=== PATIENT | male | born 1960 | race Caucasian/White ===

== ENCOUNTER 2025-05-03 13:38 | Inpatient (IN) | payer OTHER, MEDICAID ==
[2025-05-03] MEDS ORDERED: dilTIAZem 25 MG/5 ML VIAL ONE ×2 (13:56→14:16)
[2025-05-03 14:22] LABS: #Basophils 0.04 10x3/uL (0.0-0.2); #Eosinophils 0.08 10x3/uL (0.0-0.5); #Monocytes 1.21 10x3/uL (0.0-1.1); #Neutrophils 8.91 10x3/uL (1.5-8.4); %Basophils 0.3 % (0.0-2.0); %Eosinophils 0.7 % (0.0-6.0); %Lymphocytes 12.0 % (18.0-47.0); %Monocytes 10.3 % (0.0-10.0); %Neutrophils 76.2 % (40.0-75.0); Hematocrit 33.6 % (38.8-50.0); Hemoglobin 11.4 g/dL (13.5-17.5); Mean Corpuscular Hemoglobin 29.7 pg (27.0-33.0); Mean Corpuscular Volume 87.5 fL (81.2-95.1); Platelet Count 257 10x3/uL (150-450); Red Blood Cell (RBC) Count 3.84 10x6/uL (4.32-5.72); White Blood Cell (WBC) Count 11.71 10x3/uL (3.5-10.5)
[2025-05-03 14:44] LABS: ALT (SGPT) 36 U/L (Less than 45); AST (SGOT) 58 U/L (11-34); Albumin 2.5 g/dL (3.1-4.5); Alkaline Phosphatase 56 U/L (40-110); Anion Gap 16 mmol/L (10-20); BUN (Urea Nitrogen) 30 mg/dL (8.4-25.7); Bilirubin, Total 0.4 mg/dL (0.3-1.2); Calc. Creatinine Clearance 0 mL/min (70-130); Calcium 8.0 mg/dL (7.8-10.44); Carbon Dioxide 23 mmol/L (23-31); Chloride 102 mmol/L (98-107); Globulin 4.1 g/dL (2.4-3.5); Glucose 118 mg/dL (80-115); Potassium 3.8 mmol/L (3.5-5.1); Sodium 137 mmol/L (136-145)
[2025-05-03 14:49] LABS: Troponin I 0.069 ng/mL (< 0.028)
[2025-05-03] MEDS ORDERED: Digoxin 0.5 MG/2 ML AMP ONE (15:06)
[2025-05-03] MEDS ORDERED: Ibuprofen 200 MG TAB ONE (15:49)
[2025-05-03] MEDS ORDERED: cefTRIAXone (ROCEPHIN) 2 GM VIAL ONE (15:50)
[2025-05-03] MEDS ORDERED: Calcium Carbonate 500 MG ChewTAB PO PRN (16:29)
[2025-05-03] MEDS ORDERED: Ondansetron PF 4 MG/2 ML Vial IVP PRN (16:29)
[2025-05-03] MEDS ORDERED: Electrolyte Replacement Protocol 1 EACH FS SCH (16:30)
[2025-05-03 17:43] VITALS: BMI 34.7
[2025-05-03] MEDS: VANCOMYCIN 2 GRAM/400 ML BAG 2 GM in Premix 1 BAG IVPB SCH (18:27)
[2025-05-03] MEDS: Mometasone 200 MCG/Formoterol 5 MCG 60 PUFF INHALER INH SCH (20:24)
[2025-05-03 21:15] LABS: Troponin I 0.141 ng/mL (< 0.028)
[2025-05-03] MEDS: Gabapentin 100 MG CAP PO SCH (21:17)
[2025-05-03] MEDS: Aspirin Chewable 81 MG TAB PO SCH (22:41)
[2025-05-03 23:00] LABS: INR-International Normal Ratio 1.1; PTT 28.5 sec (22.0-33.0); Prothrombin Time 11.9 sec (9.5-12.1)
[2025-05-04] MEDS: Acetaminophen 325 MG TAB PO PRN (02:11)
[2025-05-04 05:35] LABS: #Basophils Less than 0.03 10x3/uL (0.0-0.2); #Eosinophils 0.19 10x3/uL (0.0-0.5); #Monocytes 0.67 10x3/uL (0.0-1.1); #Neutrophils 6.00 10x3/uL (1.5-8.4); %Basophils 0.3 % (0.0-2.0); %Eosinophils 2.4 % (0.0-6.0); %Lymphocytes 13.5 % (18.0-47.0); %Monocytes 8.4 % (0.0-10.0); %Neutrophils 75.1 % (40.0-75.0); Hematocrit 31.8 % (38.8-50.0); Hemoglobin 10.2 g/dL (13.5-17.5); Mean Corpuscular Hemoglobin 28.4 pg (27.0-33.0); Mean Corpuscular Volume 88.6 fL (81.2-95.1); Platelet Count 205 10x3/uL (150-450); Red Blood Cell (RBC) Count 3.59 10x6/uL (4.32-5.72); White Blood Cell (WBC) Count 7.98 10x3/uL (3.5-10.5)
[2025-05-04 05:51] LABS: Vancomycin, Random 12.2 ug/mL (See Comment)
[2025-05-04 05:53] LABS: ALT (SGPT) 29 U/L (Less than 45); AST (SGOT) 43 U/L (11-34); Albumin 2.1 g/dL (3.1-4.5); Alkaline Phosphatase 47 U/L (40-110); Anion Gap 14 mmol/L (10-20); BUN (Urea Nitrogen) 30 mg/dL (8.4-25.7); Bilirubin, Total 0.4 mg/dL (0.3-1.2); Calc. Creatinine Clearance 139 mL/min (70-130); Calcium 7.9 mg/dL (7.8-10.44); Carbon Dioxide 23 mmol/L (23-31); Chloride 106 mmol/L (98-107); Globulin 3.7 g/dL (2.4-3.5); Glucose 100 mg/dL (80-115); Magnesium 2.1 mg/dL (1.6-2.6); Potassium 3.6 mmol/L (3.5-5.1); Sodium 139 mmol/L (136-145)
[2025-05-04 06:16] LABS: Troponin I 0.140 ng/mL (< 0.028)
[2025-05-04] MEDS: Diltiazem HCl/D5W 125 MG in Premix 1 BAG IVPB SCH (06:17)
[2025-05-04] MEDS ORDERED: VANCOMYCIN 1.25 GM/250 ML BAG 1.25 GM in Premix 1 BAG IVPB SCH ×2 (08:00→20:00)
[2025-05-04] MEDS: Aspirin 81 mg Enteric Coated Tablet PO SCH (08:14)
[2025-05-04] MEDS: Vancomycin 1.5 GRAM/300 ML BAG 1.5 GM in Premix 1 BAG IVPB SCH (08:16)
[2025-05-04] MEDS: Furosemide 40 MG (4 mL) VIAL SLOW IVP SCH (08:53)
[2025-05-04] MEDS: Mupirocin 1 GM TUBE TP SCH (08:53)
[2025-05-04] MEDS: Furosemide 40 MG (4 mL) VIAL ONE (08:54)
[2025-05-04] MEDS: NIFEdipine XL 30 MG ER.TAB PO SCH (10:56)
[2025-05-04] MEDS: Famotidine/PF 20 mg/2ml Vial SLOW IVP SCH ×2 (11:28→21:28)
[2025-05-04] MEDS: Metoprolol Succinate XL 50 MG ER.TAB PO SCH (12:33)
[2025-05-04] MEDS: Acetaminophen/Codeine 30-300mg Tablet PO PRN (16:10)
[2025-05-04] MEDS: Apixaban 5 MG TAB PO SCH (21:28)
[2025-05-04] MEDS: Melatonin 3 MG TAB PO PRN (21:33)
[2025-05-04] MEDS: Guaifenesin DM 100-10/5 ML UDCUP PO PRN (21:34)
[2025-05-05] MEDS: Metoprolol Succinate XL 50 MG ER.TAB PO SCH (09:05)
[2025-05-05] MEDS: Furosemide 20 MG (2 mL) VIAL SLOW IVP SCH (09:06)
[2025-05-05] MEDS: predniSONE 20 MG TAB PO SCH (09:06)
[2025-05-05 10:14] LABS: #Basophils 0.03 10x3/uL (0.0-0.2); #Eosinophils 0.18 10x3/uL (0.0-0.5); #Monocytes 0.73 10x3/uL (0.0-1.1); #Neutrophils 7.17 10x3/uL (1.5-8.4); %Basophils 0.3 % (0.0-2.0); %Eosinophils 2.0 % (0.0-6.0); %Lymphocytes 8.2 % (18.0-47.0); %Monocytes 8.2 % (0.0-10.0); %Neutrophils 81.0 % (40.0-75.0); Hematocrit 33.8 % (38.8-50.0); Hemoglobin 10.9 g/dL (13.5-17.5); Mean Corpuscular Hemoglobin 28.8 pg (27.0-33.0); Mean Corpuscular Volume 89.2 fL (81.2-95.1); Platelet Count 252 10x3/uL (150-450); Red Blood Cell (RBC) Count 3.79 10x6/uL (4.32-5.72); White Blood Cell (WBC) Count 8.87 10x3/uL (3.5-10.5)
[2025-05-05 10:28] LABS: ALT (SGPT) 39 U/L (Less than 45); AST (SGOT) 47 U/L (11-34); Albumin 2.3 g/dL (3.1-4.5); Alkaline Phosphatase 53 U/L (40-110); Anion Gap 13 mmol/L (10-20); BUN (Urea Nitrogen) 30 mg/dL (8.4-25.7); Bilirubin, Total 0.3 mg/dL (0.3-1.2); Calc. Creatinine Clearance 149 mL/min (70-130); Calcium 8.1 mg/dL (7.8-10.44); Carbon Dioxide 23 mmol/L (23-31); Chloride 105 mmol/L (98-107); Globulin 4.5 g/dL (2.4-3.5); Glucose 115 mg/dL (80-115); Potassium 3.7 mmol/L (3.5-5.1); Sodium 137 mmol/L (136-145)
[2025-05-05] MEDS: Senokot S 8.6-50 MG TAB PO PRN (21:40)
[2025-05-06 03:28] LABS: #Basophils Less than 0.03 10x3/uL (0.0-0.2); #Eosinophils 0.03 10x3/uL (0.0-0.5); #Monocytes 0.61 10x3/uL (0.0-1.1); #Neutrophils 5.55 10x3/uL (1.5-8.4); %Basophils 0.3 % (0.0-2.0); %Eosinophils 0.4 % (0.0-6.0); %Lymphocytes 15.0 % (18.0-47.0); %Monocytes 8.3 % (0.0-10.0); %Neutrophils 75.6 % (40.0-75.0); Hematocrit 31.3 % (38.8-50.0); Hemoglobin 10.4 g/dL (13.5-17.5); Mean Corpuscular Hemoglobin 29.4 pg (27.0-33.0); Mean Corpuscular Volume 88.4 fL (81.2-95.1); Platelet Count 253 10x3/uL (150-450); Red Blood Cell (RBC) Count 3.54 10x6/uL (4.32-5.72); White Blood Cell (WBC) Count 7.34 10x3/uL (3.5-10.5)
[2025-05-06 03:45] LABS: ALT (SGPT) 37 U/L (Less than 45); AST (SGOT) 40 U/L (11-34); Albumin 2.1 g/dL (3.1-4.5); Alkaline Phosphatase 48 U/L (40-110); Anion Gap 11 mmol/L (10-20); BUN (Urea Nitrogen) 28 mg/dL (8.4-25.7); Bilirubin, Total 0.2 mg/dL (0.3-1.2); Calc. Creatinine Clearance 157 mL/min (70-130); Calcium 8.1 mg/dL (7.8-10.44); Carbon Dioxide 25 mmol/L (23-31); Chloride 106 mmol/L (98-107); Globulin 4.4 g/dL (2.4-3.5); Glucose 111 mg/dL (80-115); Magnesium 2.3 mg/dL (1.6-2.6); Potassium 3.9 mmol/L (3.5-5.1); Sodium 138 mmol/L (136-145)
[2025-05-06] MEDS: Thiamine 100 MG TAB PO SCH (08:59)
[2025-05-06] MEDS ORDERED: Folic Acid/Vit B Comp W-C PO SCH (09:00)
[2025-05-06] MEDS: Multivitamin W/ Minerals 1 TAB PO SCH (09:00)
[2025-05-06] MEDS ORDERED: Multivit, Therapeutic 1 TAB PO SCH (21:00)
[2025-05-07 03:48] LABS: #Basophils 0.04 10x3/uL (0.0-0.2); #Eosinophils 0.08 10x3/uL (0.0-0.5); #Monocytes 0.60 10x3/uL (0.0-1.1); #Neutrophils 5.80 10x3/uL (1.5-8.4); %Basophils 0.5 % (0.0-2.0); %Eosinophils 1.0 % (0.0-6.0); %Lymphocytes 19.9 % (18.0-47.0); %Monocytes 7.3 % (0.0-10.0); %Neutrophils 70.8 % (40.0-75.0); Hematocrit 34.8 % (38.8-50.0); Hemoglobin 11.3 g/dL (13.5-17.5); Mean Corpuscular Hemoglobin 29.1 pg (27.0-33.0); Mean Corpuscular Volume 89.7 fL (81.2-95.1); Platelet Count 307 10x3/uL (150-450); Red Blood Cell (RBC) Count 3.88 10x6/uL (4.32-5.72); White Blood Cell (WBC) Count 8.19 10x3/uL (3.5-10.5)
[2025-05-07 04:06] LABS: ALT (SGPT) 46 U/L (Less than 45); AST (SGOT) 51 U/L (11-34); Albumin 2.3 g/dL (3.1-4.5); Alkaline Phosphatase 46 U/L (40-110); Anion Gap 11 mmol/L (10-20); BUN (Urea Nitrogen) 27 mg/dL (8.4-25.7); Bilirubin, Total 0.2 mg/dL (0.3-1.2); Calc. Creatinine Clearance 170 mL/min (70-130); Calcium 8.2 mg/dL (7.8-10.44); Carbon Dioxide 26 mmol/L (23-31); Chloride 104 mmol/L (98-107); Globulin 4.4 g/dL (2.4-3.5); Glucose 119 mg/dL (80-115); Potassium 4.0 mmol/L (3.5-5.1); Sodium 137 mmol/L (136-145)
[2025-05-07 20:41] VITALS: TEMP 97.7
[2025-05-08 03:26] LABS: #Basophils 0.03 10x3/uL (0.0-0.2); #Eosinophils 0.08 10x3/uL (0.0-0.5); #Monocytes 0.62 10x3/uL (0.0-1.1); #Neutrophils 6.78 10x3/uL (1.5-8.4); %Basophils 0.3 % (0.0-2.0); %Eosinophils 0.8 % (0.0-6.0); %Lymphocytes 20.2 % (18.0-47.0); %Monocytes 6.5 % (0.0-10.0); %Neutrophils 71.6 % (40.0-75.0); Hematocrit 37.6 % (38.8-50.0); Hemoglobin 11.7 g/dL (13.5-17.5); Mean Corpuscular Hemoglobin 28.4 pg (27.0-33.0); Mean Corpuscular Volume 91.3 fL (81.2-95.1); Platelet Count 347 10x3/uL (150-450); Red Blood Cell (RBC) Count 4.12 10x6/uL (4.32-5.72); White Blood Cell (WBC) Count 9.49 10x3/uL (3.5-10.5)
[2025-05-08 03:41] LABS: ALT (SGPT) 48 U/L (Less than 45); AST (SGOT) 40 U/L (11-34); Albumin 2.5 g/dL (3.1-4.5); Alkaline Phosphatase 51 U/L (40-110); Anion Gap 11 mmol/L (10-20); BUN (Urea Nitrogen) 24 mg/dL (8.4-25.7); Bilirubin, Total 0.2 mg/dL (0.3-1.2); Calc. Creatinine Clearance 170 mL/min (70-130); Calcium 8.5 mg/dL (7.8-10.44); Carbon Dioxide 28 mmol/L (23-31); Chloride 103 mmol/L (98-107); Globulin 4.5 g/dL (2.4-3.5); Glucose 107 mg/dL (80-115); Potassium 4.5 mmol/L (3.5-5.1); Sodium 137 mmol/L (136-145)
[2025-05-08 14:16] VITALS: BP 102/65
== END 2025-05-08 12:30 | DRG 871 ==
LOC: SUATTDRO 13:38 → CSHERS 13:38 → CSHICU 16:25
PROVIDERS: ADMIT Internal Medicine; ATTEND Internal Medicine
PROC: 3E03329 Introduction of Other Anti-infective into Peripheral Vein, Percutaneous Approach (ICD-10-PCS; principal; 2025-05-03)
PROC: 5A09357 Assistance with Respiratory Ventilation, Less than 24 Consecutive Hours, Continuous Positive Airway Pressure (ICD-10-PCS; 2025-05-03)
DX: A41.9 Sepsis, unspecified organism (principal); I50.33 Acute on chronic diastolic (congestive) heart failure; J18.9 Pneumonia, unspecified organism; I48.20 Chronic atrial fibrillation, unspecified; J44.1 Chronic obstructive pulmonary disease with (acute) exacerbation; J44.0 Chronic obstructive pulmonary disease with (acute) lower respiratory infection; I11.0 Hypertensive heart disease with heart failure; I25.10 Atherosclerotic heart disease of native coronary artery without angina pectoris; I73.9 Peripheral vascular disease, unspecified; E78.5 Hyperlipidemia, unspecified; Z79.899 Other long term (current) drug therapy; Z95.5 Presence of coronary angioplasty implant and graft; Z79.82 Long term (current) use of aspirin; Z87.891 Personal history of nicotine dependence; D64.9 Anemia, unspecified; R29.6 Repeated falls; R79.89 Other specified abnormal findings of blood chemistry
CPT/HCPCS: 36415; 71045; 80053; 80202; 82607; 83605; 83735; 83880; 84100; 84145; 84443; 84484; 85025; 85610; 85730; 87040; 87086; 93005; 93010; 94640; 94660; 94664; 94760; 94762; 96374; 96375; 96376; J0692; J0696; J1160; J1650; J1940; J2060; J3370; J3490; J7030; J7512; J7620; J7626